=== PATIENT | female | born 1935 | race Caucasian/White ===

== ENCOUNTER 2021-01-24 14:22 | Outpatient (CLI) | payer MEDICARE, SELFPAY ==
--- NOTE | 2021-01-24 14:33 | XR_ITS ---
WS: [id number] SCREENING DEXA SCAN [facility] CLINICAL INFORMATION: [facility], VITAMIN D DEFIENCY COMPARISON: FINDINGS: The L1-L4 bone mineral density measures 1.115 g/cm2. This corresponds to a T score score of -0.5 and Z score of 1.2. Left femoral neck bone mineral density measures 0.766 g/cm2. This corresponds to a T score of -1.9 an d Z score of 0.2. Right femoral neck bone mineral density measures 0.782 g/cm2. This corresponds to a T score -1.8of an d Z score of 0.3. Mean femoral neck bone mineral density measures 0.774 g/cm2. This corresponds to a T score of -1.9 an d Z score of 0.3. XR/XR DEXA axial skeleton* [id number] IMPRESSION: Normal bone mineralization lumbar spine. Osteopenia femoral necks. Patient's FRAX calculated 10 year probability for major osteoporotic fracture i s 18.0 % and osteoporotic hip fracture is 6.3%.
== END 2021-01-24 14:23 | disposition home or self-care (01) ==
PROVIDERS: Visit Provider Electrodiagnostic Medicine
DX: Z00.00 Encounter for general adult medical examination without abnormal findings (principal); E55.9 Vitamin D deficiency, unspecified; M85.88 Other specified disorders of bone density and structure, other site
CPT/HCPCS: 77080

== ENCOUNTER 2021-02-20 10:46 | Outpatient (CLI) | payer MEDICARE, SELFPAY ==
--- NOTE | 2021-02-20 10:58 | US_ITS ---
WS: [id number] ULTRASOUND THYROID TECHNIQUE: Ultrasound of the thyroid. CLINICAL INFORMATION: GOITER COMPARISON: None. FINDINGS: Thyroid: Prior right thyroidectomy. No evidence of recurrence in the right thyroid bed. Heterogeneous enlargement of the left thyroid gland with diffuse micronodular echotexture. A few smal l cystic-appearing nodules measuring 3 to 4 mm. Substernal thyroid nodule or goiter measuring 5.4 x 3 .9 x 2.8 cm Right thyroid lobe: Prior right thyroidectomy Left thyroid lobe: 4.8 cm x 3.0 cm x 3.1 cm. Isthmus: 0.8 mm. Cervical lymphadenopathy: None. US/US thyroid [id number] IMPRESSION: 1. History of right thyroidectomy. No recurrence in the right thyroid bed. 2. Diffuse enlarged heterogeneous left thyroid gland with enlarged isthmus randa picious for thyroid goiter. Recommend correlation with thyroid function studies . 3. Left substernal thyroid nodule or goiter measuring 3.9 x 2.8 x 5.4 cm. This could be further evaluated with neck CT for better anatomic detail.
== END 2021-02-20 10:47 | disposition home or self-care (01) ==
PROVIDERS: PCP Electrodiagnostic Medicine; Visit Provider Electrodiagnostic Medicine
DX: E04.9 Nontoxic goiter, unspecified (principal); E89.0 Postprocedural hypothyroidism; E04.1 Nontoxic single thyroid nodule
CPT/HCPCS: 76536

== ENCOUNTER 2021-06-30 11:32 | Outpatient (CLI) | payer MEDICARE, SELFPAY ==
--- NOTE | 2021-06-30 11:56 | CT_ITS ---
WS: [id number] CT NECK TECHNIQUE: Contrast-enhanced CT of the neck with coronal and sagittal reformatted images. CLINICAL INFORMATION: NONTOXIC MULTINODULAR GOITER COMPARISON: Ultrasound February 20, 2021 DLP: 297.[address] scans at [facility] use at least one of these dose optimization techniques: automated e xposure control; mA and/or kV adjustment per patient size (includes targeted exams where dose is matc hed to clinical indication); or iterative reconstruction. FINDINGS: Heterogeneous lobulated multinodular LEFT thyroid lobe with thyroid goiter extending substernal into the LEFT anterior mediastinum. Substernal thyroid nodule measures 3.1 x 3.1 x 4.5 CM. Mass effect on the trachea and esophagus at the thoracic inlet with LEFT to RIGHT deviation. No airway narrowing. Ma ss effect on the adjacent esophagus. Retention cyst RIGHT maxillary sinus measuring 2.1 CM. Normal posterior nasopharynx. Normal paraphary ngeal fat. 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 Partially visualized intracranial conten ts appear normal for age. Tongue base appears normal. Artifact degrades images at the tongue base. No evidence of supraglottic or glottic mass. Normal epiglottis. Normal vallecula and piriform sinuses. Subglottic airway is patent. Parotid glands are normal. Normal submandibular glands. No cervical lymphadenopathy. Moderate spondyl itic changes cervical spine. Disc osteophyte complexes at C5-C6 and C6-C7 with mild central canal ofelia nosis. 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 CT/CT neck w con* [id number] IMPRESSION: 1. Heterogeneous enhancing enlarged LEFT thyroid lobe with substernal thyroid goiter. Substernal goiter measures approximately 3.1 x 3.1 x 4.5 cm 2. LEFT substernal goiter results in mass effect on the trachea at the thoraci c inlet and esophagus. LEFT to RIGHT midline shift of the trachea. No significa nt subglottic airway narrowing. 3. Prior RIGHT thyroid lobe resection. 4. Normal salivary glands. 5. No evidence of supraglottic or glottic mass. 6. No cervical lymphadenopathy. 7. Moderate spondylitic changes cervical spine.
[2021-06-30 13:10] LABS: Blood Urea Nitrogen 18 mg/dL (8-23)
[2021-06-30] MEDS: iohexol 350 mg/mL 100 mL Btl IV (13:13)
== END 2021-06-30 11:33 | disposition home or self-care (01) ==
PROVIDERS: PCP Electrodiagnostic Medicine; Visit Provider Specialist
DX: E04.2 Nontoxic multinodular goiter (principal)
CPT/HCPCS: 70491; 82565; 84520

== ENCOUNTER 2022-01-24 10:02 | Outpatient (CLI) | payer MEDICARE, SELFPAY ==
--- NOTE | 2022-01-24 10:21 | CT_ITS ---
WS: [id number] CT NECK TECHNIQUE: Contrast-enhanced CT of the neck with coronal and sagittal reformatted images. 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 FINDINGS: Prior RIGHT thyroidectomy. No evidence of recurrence in the RIGHT thyroid bed. Diffuse hete rogeneous enlargement of the LEFT thyroid with enlarged Isthmus. Stable LEFT substernal thyroid nodul e appears stable measuring up to 4.5 cm. Associated mass effect on the trachea at the thoracic inlet . LEFT to RIGHT midline shift on the trachea. Subglottic airway remains patent. 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 Normal parotid glands. Normal submandibular glands. No evidence of supraglottic or glottic mass. Subg lottic airway is normal. No cervical lymphadenopathy. Normal posterior nasopharynx and parapharyngeal fat. Dental artifact degrades some images of the tongue base. Mastoid air cells well aerated. Retent ion cyst RIGHT maxillary sinus measuring 2.1 cm. Pleural plaques in the lung apices with fibrosis. Ao rtic calcification. Moderate spondylitic changes cervical spine. CT/CT neck w con* [id number] IMPRESSION: 1. Stable heterogeneous thyroid with prior RIGHT thyroidectomy. 2. LEFT substernal goiter/nodule with heterogeneous enhancement is unchanged i n appearance compared to the prior neck CT measuring approximately 3.1 x 3.1 x 4.5 cm 3. Mild to moderate mass effect on the trachea at the thoracic inlet is unchan ged. 4. 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 5. No other significant interval changes.
[2022-01-24] MEDS: iohexol 350 mg/mL 500 mL Btl (per mL) IV (10:38)
[2022-01-24 11:28] LABS: Blood Urea Nitrogen 20 mg/dL (8-23)
== END 2022-01-24 10:03 | disposition home or self-care (01) ==
LOC: RAD 10:04
PROVIDERS: PCP Electrodiagnostic Medicine; Visit Provider Specialist
DX: E04.1 Nontoxic single thyroid nodule (principal); J38.2 Nodules of vocal cords; E89.0 Postprocedural hypothyroidism
CPT/HCPCS: 70491; 82565; 84520; Q9967

== ENCOUNTER 2022-09-07 16:40 | Observation (INO) | payer MEDICARE, SELFPAY ==
[2022-09-07] VITALS (26 sets, daily range): BP systolic 99–158; BP diastolic 48–108; PULSE 69–150; RESP 15–21; TEMP 36.6–37; O2SAT 92–98; BMI 23.9
--- NOTE | 2022-09-07 17:04 | ECG_ITS ---
[facility] Test Date: 2022-09-07 Pat Name: Saw Juarez Department: Room: Gender: Female Shoe Cobbler: : 1935 Requested By: Miguel Mendes Order Number: [id number] Marti MD: Mckinley Stuart M.D. Measurements Intervals [place] Rate: 154 P: 0 OK: 0 QRS: 56 QRSD: 84 T: 32 QT: 257 QTc: 412 Interpretive Statements ATRIAL FIBRILLATION WITH RAPID VENTRICULAR RESPONSE MODERATE ST DEPRESSION [0.05+ mV ST DEPRESSION] No previous ECG available for comparison Electronically Signed On 09-08-2022 1:10:06 CDT by Mckinley Stuart M.D. [email or web address]
--- NOTE | 2022-09-07 17:11 | ED_ITS ---
HPI - Weakness General: Chief complaint: Weakness Stated complaint: High pulse, Weakness, Dizzy Time Seen by Provider: 09/07/22 17:01 History of Present Illness: Patient being weak and dizzy since she started some new medicine. This was an antibiotic for UTI about 1 week ago. Patient has since stopped it patient saw her doctor at [facility] this morning they recommended she come here to be further checked out and evaluated. Patient said her heart rate was in 140s when she checked. Patient does not have a history of tachycardia or atrial fibrillation. Patient is on no blood thinners. Patient did not finish her antibiotics for UTI. Patient is never felt like this before. Review of Systems General: Reports: 10 or more systems reviewed and unremarkable except in HPI and below Physical Exam Const: COMMON NORMALS: no acute distress, average body habitus, patient oriented x3, no limitations, healthy appearing, alert and well nourished HENMT: COMMON NORMALS: normocephalic, atraumatic, hearing grossly normal bilaterally, external ears normal, Normal external nose present and moist oral mucous membranes HEAD & SCALP: normocephalic and atraumatic NOSE: Normal external nose present EXTERNAL EAR: Yes external ears normal Eye: COMMON NORMALS: Equal, round and reactive pupils present, EOMs intact bilaterally, conjunctivae normal and no scleral icterus CONJUNCTIVA: Yes conjunctivae normal PUPIL: Yes Equal, round and reactive pupils present Neck/C-Spine: COMMON NORMALS: full ROM, no lymphadenopathy, supple, no meningeal signs and no JVD Chest: COMMONS NORMALS: normal inspection of the chest and normal palpation of entire chest wall Resp: COMMON NORMALS: normal respiratory effort, No retractions, No use of accessory muscles and clear to auscultation bilaterally AUSCULTATION: clear to auscultation bilaterally Cardio: COMMON NORMALS: no JVD; negative for regular rate (Tachycardic) and negative for regular rhythm (Irregularly irregular) RATE: abnormal rate (Tachycardic) RHYTHM: abnormal rhythm (Irregularly irregular) GI: COMMON NORMALS: Normal to inspection, nondistended, normoactive bowel sounds present, Soft to palpation, non-tender, No hepatosplenomegaly present and no masses PALPATION: Yes Soft to palpation and Yes No hepatosplenomegaly present : COMMON NORMALS: Yes no CVA tenderness BLADDER/KIDNEY EXAM: Yes no CVA tenderness Back/Pelvis: COMMON NORMALS: no CVA tenderness Extremity: COMMON NORMALS: normal to inspection Neuro: COMMON NORMALS: patient oriented x3 SENSORIUM/ORIENTATION: Yes alert MENINGEAL SIGNS: Yes no meningeal signs Course Vital Signs: Vital signs: Vital Signs Pulse Rate 129 H 09/07/22 17:30 Respiratory Rate 17 09/07/22 16:53 Blood Pressure 116/91 09/07/22 17:30 Pulse Oximetry 97 09/07/22 17:30 Oxygen Delivery Me thod Room Air 09/07/22 17:30 MDM - Weakness Medical Decision Making Patient presents to the ER with complaints of heart racing and weakness starting this morning. EKG showed A-fib with RVR at a rate of about 140 beats a minute. Patient was given 10 mg of Cardizem and started on Cardizem drip. Lab work was obtained which was essentially unremarkable. Patient required the drip to be titrated although up to 12.5 mg/h which she then returned back to normal sinus rhythm at about [address] Hollingsworth did accept the patient to [facility] for observation. Differential Diagnosis Unlikely acute myocardial infarction, anemia, hypothyroidism, rhabdomyolysis, sepsis or dehydration Medical Records I reviewed the patient's medical records. Lab Data I reviewed the patient's lab results. 09/07/22 17:04 09/07/22 17:04 Laboratory Results WBC 10.0 10^3/uL (4.0-10.0) 09/07/22 17:04 RBC 4.90 10^6/uL (4.1-5.3) 09/07/22 17:04 Hgb 15.0 g/dL (11.5-15.3) 09/07/22 17:04 Hct 44.1 % (37.0-47.0) 09/07/22 17:04 MCV 90.0 fl (81-99) 09/07/22 17:04 MCH 30.6 pg (28.0-34.0) 09/07/22 17:04 MCHC 34.0 g/dL (30.0-36.0) 09/07/22 17:04 RDW 13.8 % (12.1-15.1) 09/07/22 17:04 Plt Count 340 10^3/cmm (130-400) 09/07/22 17:04 MPV 9.3 fL (7.4-10.4) 09/07/22 17:04 Neut % (Auto) 90.1 % 09/07/22 17:04 Lymph % (Auto) 8.4 % 09/07/22 17:04 [place] % (Auto) 0.9 % 09/07/22 17:04 Eos % (Auto) 0.0 % 09/07/22 17:04 Baso % (Auto) 0.2 % 09/07/22 17:04 Neut # (Auto) 9.01 10^3/uL (1.8-7.7) H 09/07/22 17:04 Lymph # (Auto) 0.8 10^3/uL (0.8-4.8) 09/07/22 17:04 [place] # (Auto) 0.1 10^3/uL (0.2-0.9) L 09/07/22 17:04 Eos # (Auto) 0.0 10^3/uL (0.0-0.8) 09/07/22 17:04 Baso # (Auto) 0.0 10^3/uL (0.0-0.1) 09/07/22 17:04 Nucleated RBC % (auto) 0 % 09/07/22 17:04 Nucleated RBCs # 0.0 /100WBC 09/07/22 17:04 Sodium 131 mmol/L (136-145) L 09/07/22 17:04 Potassium 4.2 mmol/L (3.5-5.1) 09/07/22 17:04 Chloride 94 mmol/L (98-107) L 09/07/22 17:04 Carbon Dioxide 23 mmol/L (22-29) 09/07/22 17:04 Anion Gap 18.2 (5-19) 09/07/22 17:04 BUN 14 mg/dL (8-23) 09/07/22 17:04 Creatinine 0.7 mg/dL (0.5-0.9) 09/07/22 17:04 GFR Calculation Not Reportable 09/07/22 17:04 Glucose 165 mg/dL (65-115) H 09/07/22 17:04 Calculated Osmolality 276 mOsm/kg (285-295) L 09/07/22 17:04 Calcium 9.6 mg/dL (8.5-10.5) 09/07/22 17:04 Magnesium 1.8 mg/dL (1.7-2.3) 09/07/22 17:04 Total Bilirubin 0.4 mg/dL (0.15-1.2) 09/07/22 17:04 AST 23 U/L (0-32) 09/07/22 17:04 ALT 17 U/L (0-33) 09/07/22 17:04 Alkaline Phosphatase 55 U/L (35-105) 09/07/22 17:04 Troponin T Gen 5 ng/L 11 ng/L (0-10) H 09/07/22 17:04 Total Protein 6.7 g/dL (6.6-8.7) 09/07/22 17:04 Albumin 4.5 g/dL (3.5-5.2) 09/07/22 17:04 Globulin 2.2 g/dL (1.3-4.6) 09/07/22 17:04 EKG Data EKG 1: I personally reviewed and interpreted this EKG as follows: EKG interpretation date: 09/07/22 EKG interpretation time: 17:04 Prior EKG tracings: not available for review Interpretation: EKG showed ventricular rate 154 beats minute, atrial fibrillation with rapid ventricular response. QRS duration 84, QTc 344, moderate ST depression, Discharge Plan Discharge Patient Disposition: Placed in Observation Clinical Impression: Atrial fibrillation with rapid ventricular response Condition: Stable Coding Level of Care Code ED Foreign Clerk for Lalo Tao
[2022-09-07] MEDS: sodium chloride 0.9% 1,000 ML 999 ML IV (17:13)
[2022-09-07] MEDS: dilTIAZem 5 mg/mL SDV 5 mL 10 MG IVP (17:14)
[2022-09-07 17:17] LABS: Basophils % 0.2 %; Hematocrit 44.1 % (37.0-47.0); Lymphocytes # 0.8 10^3/uL (0.8-4.8); Lymphocytes % 8.4 %; Mean Corpuscular Hemoglobin 30.6 pg (28.0-34.0); Mean Platelet Volume 9.3 fL (7.4-10.4); Monocytes # 0.1 10^3/uL (0.2-0.9); Monocytes % 0.9 %; Neutrophils # 9.01 10^3/uL (1.8-7.7); Neutrophils % 90.1 %; Nucleated Red Blood Cells % 0 %; Platelet Count 340 10^3/cmm (130-400); Red Cell Distribution Width 13.8 % (12.1-15.1)
[2022-09-07] MEDS: dilTIAZem 100 MG in sodium chloride 0.9% (add-van) 100 ML IV (17:24)
--- NOTE | 2022-09-07 17:27 | PC.NURSE ---
TITRATE CARDIZEM DRIP TO REFLECT A HEARTRATE OF 100BPM OR LESS, PER DR. SPENCER.
[2022-09-07 17:28] LABS: Troponin T (5th) Once 11 ng/L (0-10)
[2022-09-07 17:30] LABS: Alanine Aminotransferase 17 U/L (0-33); Albumin Level 4.5 g/dL (3.5-5.2); Alkaline Phosphatase 55 U/L (35-105); Aspartate Amino Transferase 23 U/L (0-32); Blood Urea Nitrogen 14 mg/dL (8-23); Calcium 9.6 mg/dL (8.5-10.5); Carbon Dioxide 23 mmol/L (22-29); Globulin 2.2 g/dL (1.3-4.6); Glucose 165 mg/dL (65-115); Magnesium 1.8 mg/dL (1.7-2.3); Total Bilirubin 0.4 mg/dL (0.15-1.2); Total Protein 6.7 g/dL (6.6-8.7)
[2022-09-07 17:31] LABS: Anion Gap 18.2 (5-19); Potassium 4.2 mmol/L (3.5-5.1)
--- NOTE | 2022-09-07 18:43 | PC.NURSE ---
PT MAINTAINING HEART RATE OF 88 WITH CARDIZEM GOING AT 12.5 MG/HR. PER ORDERS FROM DR. SPENCER, NO MORE TITRATION DUE TO HEART RATE BELOW 100.
--- NOTE | 2022-09-07 19:01 | PM.HP ---
Providers/Chief Complaint Admitting Physician: Shadi Hollingsworth Primary Care Provider: Marky Flores DO Chief Complaint: High pulse, Weakness, Dizzy History of Present Illness Saw Juarez is a 87 year old female with past medical history of hypertension presented to the hospital today for complaint of overall not feeling well. She says that for the last few weeks she has been feeling dizzy and lightheaded. She has not passed out at all. She says she does have trouble with some motion sickness in the past and takes [id number] medicine for it. She says she got her ears checked and they were fine. She also had her ears irrigated by her primary care doctor. She said her primary care doctor did a full work-up and apparently no particular diagnosis was made. She said they could not figure out what is going on so they gave her an antibiotic for presumed UTI. She says she took the antibiotic and had severe allergy to it and had itching and hives. She went back to her doctor and got a different antibiotic this time which was probably amoxicillin she thinks and that gave her an allergic reaction as well. She says she does not normally take medications. She says she went back to the doctor thinking that maybe she had a sinus infection and that is causing dizziness at this point she was given prednisone and she only took 2 tablets for 2 days. Then at 1 point it was noted that her heart rate was 142 at home. She called her primary care doctor's office who directed her to go to the ER. She denies having a fever, nausea, vomiting, diarrhea, abdominal pain, chest pain, shortness of breath. Her only symptom is lightheadedness and dizziness which is also resolved at this point. Patient denies any dysuria or any other symptoms at this time. ED course: On arrival patient was found to be in A-fib with RVR. She was given 10 of Cardizem and started on a drip. She has since then converted to sinus rhythm and will be admitted for observation. At home patient takes hydrochlorothiazide and metoprolol tartrate twice daily. Medications/Allergies Home Medications Medication Instructions Recorded Confirmed Last Taken Type hydrochlorothiazide 25 mg tablet 25 mg PO DAILY 09/07/22 09/07/22 Unknown History metoprolol tartrate 50 mg tablet 50 mg PO 2XD 09/07/22 09/07/22 09/06/22 History nitrofurantoin 100 mg PO 2XD 09/07/22 09/07/22 Unknown History monohydrate/macrocrystals 100 mg capsule prednisone 20 mg tablet 20 mg PO 1XD 09/07/22 09/07/22 Unknown History Allergies Allergy/AdvReac Type Severity Reaction Status Date / Time amoxicillin Allergy ALGY-Rash Verified 09/07/22 20:02 doxycycline Allergy ALGY-Rash Verified 09/07/22 20:05 Vitals/I&O/Wt Last Vital Signs Pulse 84 09/07/22 18:45 Resp 17 09/07/22 16:53 BP 117/60 09/07/22 18:45 Pulse Ox 97 09/07/22 18:45 O2 Del Method Room Air 09/07/22 18:45 09/07/22 09/07/22 09/07/22 06:59 14:59 22:59 Intake Total 1007.041 / 1007.041 Balance 1007.041 / 1007.041 Weight last 48 hrs Weight 65.317 kg Physical Exam Narrative: General: Alert oriented x3, patient seen sitting up in bed appearing comfortable at this time. HEENT: Normocephalic, atraumatic, EOMI, breathing normally on room air. Cardio: Regular rate rhythm, normal S1-S2, Respiratory: Good bilateral air entry, no wheezes no rhonchi appreciated GI: Abdomen soft, nontender, nondistended, bowel sounds + Behavior: Appropriate and cooperative Extremities: No edema Data 09/07/22 17:04 09/07/22 17:04 A&P Assessment and plan (1) Atrial fibrillation with rapid ventricular response: (2) Hypertension: (3) Lightheadedness: Plan #New onset atrial fibrillation #Dizziness lightheadedness last few weeks #Hypertension #UTI?? #Mild hyponatremia ? Continue Lopressor 50 twice daily. I would hold hydrochlorothiazide at this time. ? Keep magnesium above 2, potassium above 4 ? Replete electrolytes as needed. Check BMP magnesium in a.m. ? Unsure how long patient was in A-fib as she has been having dizziness lightheadedness symptoms for last few weeks. At this point she is converted to sinus rhythm. ? [id number] is greater than 2. Patient would benefit from anticoagulation if this was paroxysmal atrial fibrillation. Patient will probably need a Holter monitor at discharge. ? We will need to discuss with her regarding anticoagulation. ? Cardiac diet ? Check echocardiogram ? SCDs, heparin SQ twice daily for DVT prophylaxis ? She denies chest pain shortness of breath or any other symptoms. ? We will check a urine culture to rule out UTI. I will hold off antibiotics for now. She apparently has had an allergic reaction to nitrofurantoin and amoxicillin from what it seems like. - check tsh, lipid, hba1c -Check orthostatic vitals ? Check urine osmolality, serum osmolality, urine sodium. Low sodium could be due to dehydration. I will place on normal saline 75 cc/h. Full code Attestations Medical Necessity Statement*: Observation for atrial fibrillation now converted to sinus rhythm. Expect stay less than 48 hours. Coding Level of Care Code G0425 (30 min) TH Encounter Time (min): 40 Patient seen via Telehealth in the acute care setting (hospital or ED location) by agreement and consent of patient or patient technical service representative. Telehealth technology used during the visit includes video and audio. This patient encounter is appropriate and reasonable under the circumstances given the patient?s particular presentation at this time. The patient has been advised of the potential risks and limitations of this mode of treatment (including but not limited to the absence of in-person examination at this time) and has agreed to be treated by an off-site physician for this visit. If deemed clinically necessary from this telehealth visit, or if condition or consent for telehealth visit changes, an in-person visit will be arranged. For this encounter, total time for the origination of telehealth care on this date is as shown. Diagnoses Atrial fibrillation with rapid ventricular response I48.91 Hypertension I10 Lightheadedness R42
[2022-09-07 19:42] LABS: Thyroid Stimulating Hormone 0.34 uIU/mL (0.27-4.20)
[2022-09-07 19:46] LABS: Sodium 131 mmol/L (136-145)
[2022-09-07 19:47] LABS: Chloride 94 mmol/L (98-107); Osmolality Calculated 276 mOsm/kg (285-295)
[2022-09-07] MEDS: sodium chloride 0.9% 1,000 ML 75 ML IV (20:26)
[2022-09-07 20:35] LABS: Chol HDL Ratio 2.97 mg/dL (0.0-4.40); Cholesterol 175 mg/dL (0-200); HDL Cholesterol 59 mg/dL (60-100); LDL Cholesterol Calculated 81 mg/dL (50-129); LDL HDL Ratio 1.37 RATIO (0.00-3.22); Triglycerides 177 mg/dL (0-150)
[2022-09-07 20:42] LABS: Estmated Average Glucose 114; Hemoglobin A1C 5.6 % (4.0-6.0)
[2022-09-08] VITALS (24 sets, daily range): BP systolic 108–135; BP diastolic 44–97; PULSE 65–88; RESP 14–23; TEMP 36.7–36.9; O2SAT 93–96
[2022-09-08 03:16] LABS: Bilirubin Urine Neg (Negative); Blood Urine Neg (Negative); Glucose Urine UA Norm (Normal); Ketones Urine 1+ (Negative); Nitrate Urine Negative (Negative); Protein Urine Neg (Negative); Urine Appearance SL Hazy (CLEAR); Urine Color Yellow (Yellow); Urobilinogen Urine Norm (Negative); pH Urine 5 (5-7)
[2022-09-08 03:17] LABS: Add Urine Microscopic? YES; Leukocyte Esterase Urine 1+ (Negative)
[2022-09-08 03:20] LABS: Add Urine Culture? Yes; Bacteria Urine 3+ /hpf; RBC Urine 0-4 /hpf (0-2); Squamous Epithelial Cell Urine 0-4 /hpf (0-5)
[2022-09-08 03:38] LABS: Basophils % 0.1 %; Eosinophils % 0.1 %; Hematocrit 39.8 % (37.0-47.0); Hemoglobin 13.2 g/dL (11.5-15.3); Lymphocytes # 1.8 10^3/uL (0.8-4.8); Lymphocytes % 19.6 %; Mean Corpuscular HGB Conc 33.2 g/dL (30.0-36.0); Mean Corpuscular Hemoglobin 30.4 pg (28.0-34.0); Mean Corpuscular Volume 91.7 fl (81-99); Mean Platelet Volume 9.3 fL (7.4-10.4); Monocytes # 0.7 10^3/uL (0.2-0.9); Monocytes % 7.2 %; Neutrophils # 6.71 10^3/uL (1.8-7.7); Neutrophils % 72.7 %; Nucleated Red Blood Cells % 0 %; Platelet Count 293 10^3/cmm (130-400); Red Blood Count 4.34 10^6/uL (4.1-5.3); Red Cell Distribution Width 14.1 % (12.1-15.1); White Blood Count 9.2 10^3/uL (4.0-10.0)
[2022-09-08 03:51] LABS: Alanine Aminotransferase 14 U/L (0-33); Albumin Level 3.6 g/dL (3.5-5.2); Alkaline Phosphatase 43 U/L (35-105); Anion Gap 15.2 (5-19); Aspartate Amino Transferase 16 U/L (0-32); Blood Urea Nitrogen 11 mg/dL (8-23); Calcium 8.6 mg/dL (8.5-10.5); Carbon Dioxide 24 mmol/L (22-29); Chloride 103 mmol/L (98-107); Globulin 2.1 g/dL (1.3-4.6); Glucose 120 mg/dL (65-115); Magnesium 1.9 mg/dL (1.7-2.3); Osmolality Calculated 287 mOsm/kg (285-295); Potassium 4.2 mmol/L (3.5-5.1); Sodium 138 mmol/L (136-145); Total Bilirubin 0.5 mg/dL (0.15-1.2); Total Protein 5.7 g/dL (6.6-8.7)
[2022-09-08] MEDS: sodium chloride 0.9% 1,000 ML 75 ML IV (10:01)
[2022-09-08] MEDS: metoprolol tartrate 50 mg Tablet PO ×2 (10:01→20:46)
--- NOTE | 2022-09-08 15:04 | PM.DCS ---
Discharge Providers Date of Admission: 09/07/22 18:44 Date of Discharge: September 08, 2022 Attending Provider at Admission: Shadi Hollingsworth Attending Provider at Discharge: Shadi Hollingsworth Primary Care Provider: Marky Flores DO Diagnoses at Discharge Discharge Diagnosis (1) Atrial fibrillation with rapid ventricular response: Status: Acute (2) Hypertension: Status: Acute (3) Lightheadedness: Status: Acute Other Information Additional DC diagnoses/information: Spotting UTI Reason for Visit Reason for Visit: High pulse, Weakness, Dizzy Hospital Course Hospital Course Very pleasant 87-year-old lady with history of hypertension was placed in observation hospital after presenting due to dizziness, lightheadedness, with finding of atrial fibrillation with RVR presentation. She feels it may have been triggered by prednisone or possibly by reaction to antibiotic, she thinks amoxicillin. She does not have history of atrial fibrillation. Heart rates in the 150s initially. She received Cardizem, started on Cardizem drip. Converted to sinus rhythm last night. Overnight monitoring on telemetry, remains in sinus. Resumed on her metoprolol of 50 mg twice daily. TSH checked and normal. Electrolytes WNL. Cardiac studies without suggestion of acute GA or cardiac ischemia. Remains asymptomatic at this time, no chest pain pressure, trouble breathing. Doing well. Echocardiogram was ordered, but is still not performed and as she is otherwise doing well and comfortable returning home, echocardiogram is requested to be done as outpatient. Prednisone is discontinued, nitrofurantoin is stopped. She is still noted to have some residual urinary tract infection with pyuria. She also noticed some red spots on tissue paper when she wipes but denies any blood in the toilet bowl. She declined examination. Antibiotic switched to cefdinir, first dose to be given here prior to discharge. Please follow-up urine culture results. Please follow-up regarding blood spots on tissue paper, revisit examination, consider other sources. Only 074 RBC noted in urine. In case of hematuria, consider referral for assessment to urology if not resolving with treatment of UTI, other causes could be gynecologic. He denies blood in stool. Discussing risk of stroke with atrial fibrillation, [id number] score is 3, would benefit from anticoagulation, rate, currently declines as she is worried about taking anticoagulation and worried about bleeding. Discussed for now starting aspirin 81 mg with which she is okay. Please revisit with her consideration of anticoagulation especially if bleeding concerns are addressed. In case not a candidate or still concerns, consider referral for left atrial appendage closure. Physical Exam Narrative: Accompanied by her . Const: COMMON NORMALS: patient oriented x3 and alert GENERAL APPEARANCE: cooperative ORIENTATION/CONSCIOUSNESS: Yes awake HENMT: COMMON NORMALS: oropharynx normal Neck/C-Spine: COMMON NORMALS: no JVD Resp: COMMON NORMALS: normal respiratory effort and clear to auscultation bilaterally AUSCULTATION: clear to auscultation bilaterally Cardio: COMMON NORMALS: no JVD, regular rhythm, S1 normal heart sound present, S2 normal heart sound present and No murmurs present (Cardio) RHYTHM: regular rhythm HEART SOUNDS: S1 normal heart sound present and S2 normal heart sound present GI: COMMON NORMALS: Normal to inspection, nondistended, normoactive bowel sounds present, Soft to palpation and non-tender PALPATION: Yes Soft to palpation Extremity: COMMON NORMALS: no joint enlargement and no pedal edema Neuro: COMMON NORMALS: patient oriented x3 and moves all extremities SENSORIUM/ORIENTATION: Yes alert Skin: COMMON NORMALS: no rashes or lesions noted GENERAL SKIN EXAM: no rashes or lesions noted Discharge Data Studies Completed and Pending Pending at discharge Category Date Time Status Blood Culture Routine Lab 09/07/22 19:58 Results Urine Culture Stat Lab 09/07/22 03:00 Received Urine Culture Stat Lab 09/07/22 03:00 Received CV. echo complete* [id number] Routine Ultrasound 09/08/22 18:59 Ordered Laboratory Results WBC 9.2 10^3/uL (4.0-10.0) 09/08/22 03:12 RBC 4.34 10^6/uL (4.1-5.3) 09/08/22 03:12 Hgb 13.2 g/dL (11.5-15.3) 09/08/22 03:12 Hct 39.8 % (37.0-47.0) 09/08/22 03:12 MCV 91.7 fl (81-99) 09/08/22 03:12 MCH 30.4 pg (28.0-34.0) 09/08/22 03:12 MCHC 33.2 g/dL (30.0-36.0) 09/08/22 03:12 RDW 14.1 % (12.1-15.1) 09/08/22 03:12 Plt Count 293 10^3/cmm (130-400) 09/08/22 03:12 MPV 9.3 fL (7.4-10.4) 09/08/22 03:12 Neut % (Auto) 72.7 % 09/08/22 03:12 Lymph % (Auto) 19.6 % 09/08/22 03:12 [place] % (Auto) 7.2 % 09/08/22 03:12 Eos % (Auto) 0.1 % 09/08/22 03:12 Baso % (Auto) 0.1 % 09/08/22 03:12 Neut # (Auto) 6.71 10^3/uL (1.8-7.7) 09/08/22 03:12 Lymph # (Auto) 1.8 10^3/uL (0.8-4.8) 09/08/22 03:12 [place] # (Auto) 0.7 10^3/uL (0.2-0.9) 09/08/22 03:12 Eos # (Auto) 0.0 10^3/uL (0.0-0.8) 09/08/22 03:12 Baso # (Auto) 0.0 10^3/uL (0.0-0.1) 09/08/22 03:12 Nucleated RBC % (auto) 0 % 09/08/22 03:12 Nucleated RBCs # 0.0 /100WBC 09/08/22 03:12 Sodium 138 mmol/L (136-145) 09/08/22 03:12 Potassium 4.2 mmol/L (3.5-5.1) 09/08/22 03:12 Chloride 103 mmol/L (98-107) 09/08/22 03:12 Carbon Dioxide 24 mmol/L (22-29) 09/08/22 03:12 Anion Gap 15.2 (5-19) 09/08/22 03:12 BUN 11 mg/dL (8-23) 09/08/22 03:12 Creatinine 0.5 mg/dL (0.5-0.9) 09/08/22 03:12 GFR Calculation Not Reportable 09/08/22 03:12 Glucose 120 mg/dL (65-115) H 09/08/22 03:12 Estimat Average Glucose 114 09/07/22 17:04 Hemoglobin A1c 5.6 % (4.0-6.0) 09/07/22 17:04 Calculated Osmolality 287 mOsm/kg (285-295) 09/08/22 03:12 Calcium 8.6 mg/dL (8.5-10.5) 09/08/22 03:12 Magnesium 1.9 mg/dL (1.7-2.3) 09/08/22 03:12 Total Bilirubin 0.5 mg/dL (0.15-1.2) 09/08/22 03:12 AST 16 U/L (0-32) 09/08/22 03:12 ALT 14 U/L (0-33) 09/08/22 03:12 Alkaline Phosphatase 43 U/L (35-105) 09/08/22 03:12 Troponin T Gen 5 ng/L 11 ng/L (0-10) H 09/07/22 17:04 Total Protein 5.7 g/dL (6.6-8.7) L 09/08/22 03:12 Albumin 3.6 g/dL (3.5-5.2) 09/08/22 03:12 Globulin 2.1 g/dL (1.3-4.6) 09/08/22 03:12 Triglycerides 177 mg/dL (0-150) H 09/07/22 17:04 Cholesterol 175 mg/dL (0-200) 09/07/22 17:04 LDL Cholesterol, Calc 81 mg/dL (50-129) 09/07/22 17:04 HDL Cholesterol 59 mg/dL (60-100) L 09/07/22 17:04 LDL/HDL Ratio 1.37 RATIO (0.00-3.22) 09/07/22 17:04 Cholesterol/HDL Ratio 2.97 mg/dL (0.0-4.40) 09/07/22 17:04 TSH 0.34 uIU/mL (0.27-4.20) 09/07/22 17:04 Urine Color Yellow (Yellow) 09/07/22 03:00 Urine Appearance Sl hazy (CLEAR) A 09/07/22 03:00 Urine pH 5 (5-7) 09/07/22 03:00 Ur Specific [place] 1.010 (1.005-1.030) 09/07/22 03:00 Urine Protein Neg (Negative) 09/07/22 03:00 Urine Glucose (UA) Norm (Normal) 09/07/22 03:00 Urine Ketones 1+ (Negative) H 09/07/22 03:00 Urine Blood Neg (Negative) 09/07/22 03:00 Urine Nitrate Negative (Negative) 09/07/22 03:00 Urine Bilirubin Neg (Negative) 09/07/22 03:00 Urine Urobilinogen Norm mg/dL (Negative) 09/07/22 03:00 Ur Leukocyte Esterase 1+ (Negative) H 09/07/22 03:00 Urine RBC 0-4 /hpf (0-2) H 09/07/22 03:00 Urine WBC 10-15 /hpf (0-5) H 09/07/22 03:00 Ur Squamous Epith Cells 0-4 /hpf (0-5) H 09/07/22 03:00 Amorphous Sediment Not Reportable 09/07/22 03:00 Urine Bacteria 3+ /hpf (NONE) H 09/07/22 03:00 Vitals Last Vital Signs Temp 98.1 F 09/08/22 11:52 Pulse 66 09/08/22 11:52 Resp 14 09/08/22 11:52 BP 133/65 09/08/22 11:52 Pulse Ox 94 09/08/22 11:52 O2 Del Method Room Air 09/08/22 11:52 Discharge Plan Discharge Patient Disposition: Home Condition: Stable Prescriptions: New cefdinir 300 mg Capsule 300 mg PO BID Qty: 14 0RF aspirin 81 mg tablet,delayed release (DR/EC) 81 mg PO DAILY Qty: 90 0RF Continued metoprolol tartrate 50 mg tablet 50 mg PO 2XD Changed hydrochlorothiazide 25 mg tablet 12.5 mg PO DAILY Qty: 1 0RF Rx Instructions: Dose change only. Discontinued nitrofurantoin monohyd/m-cryst 100 mg capsule 100 mg PO 2XD Rx Instructions: for 7 days prednisone 20 mg tablet 20 mg PO 1XD Rx Instructions: for 6 days Discharge Orders: Discharge Order (Routine); Ordered 09/08/22 Ordered By: Shadi Hollingsworth Other Ambulatory Orders: CV. echo complete* [id number] (Routine) Timeframe: 3 Days Facility: [facility] - Location: Radiology Ordered By: Shadi Hollingsworth Referrals: Marky Flores, [Primary Care Provider] - 4-7 days Discharge Diet: Cardiac Patient Instructions: Aspirin (By mouth), A-fib (Atrial Fibrillation) (GEN) Activity Restrictions/Additional Instructions: Please follow-up with your primary doctor with regards to finding of new onset atrial fibrillation. You are referred for outpatient assessment with echocardiogram, please follow-up with your primary doctor. Please note that you are at increased risk of stroke due to atrial fibrillation, your age and hypertension, ideally you would benefit from treatment with anticoagulation, as per discussion currently you are started on aspirin. Please follow-up with your primary doctor regarding blood on tissue paper when wiping, and discuss consideration of anticoagulation once bleeding resolves or source of bleeding identified. If unable to tolerate blood thinners, discussed consideration of referral for left atrial appendage closure device. Please monitor your heart rate 3 times daily, alongside with your blood pressure, write down values to bring to your appointment. In case you experience any worse or new concerning symptoms, including lightheadedness, feeling faint, chest pain or pressure, shortness of breath, numbness or weakness of extremity, trouble speaking, facial droop, bleeding, or any other concerning findings, please seek medical attention. Discharge Attestations Time Spent in Discharge Care*: greater than 30 min Quality Metrics Clinical Quality Measures [ No reported AMI, CVA or VTE this stay] Coding Level of Care Code 19043 Total time (in minutes) for Discharge: 60 Diagnoses Atrial fibrillation with rapid ventricular response I48.91 Hypertension I10 Lightheadedness R42
[2022-09-08] MEDS: cefdinir 300 MG CAPSULE PO (15:29)
--- NOTE | 2022-09-08 17:30 | PC.NURSE ---
Pt concern that she her throat is going to close. Pt stated that she started to have a scratchy, hoarse voice. She told me she had a goiter before but she has a scratchy voice before but not in a long time. She thinks her lips are and mouth are dry. pt stated she would rather stay overnight to monitor for any allergic reaction. Dr Hollingsworth notified and is okay to be discharge in the morning.
[2022-09-09] VITALS: BP 131/79; PULSE 75; RESP 17; TEMP 37.1; O2SAT 96
[2022-09-09 04:00] VITALS: BP 133/70; PULSE 78; RESP 19; TEMP 37; O2SAT 98
[2022-09-09 05:57] VITALS: PULSE 75
--- NOTE | 2022-09-09 06:55 | PC.NURSE ---
Spoke with regarding patient going back into rapid afib at change of shift. HR 120-130s, BP 130/83. The patient states she woke up in a sweat but that is normal for her. said to give the patient her 9am metoprolol early for now.
[2022-09-09] MEDS: metoprolol tartrate 50 mg Tablet PO (07:02)
--- NOTE | 2022-09-09 08:30 | PC.NURSE ---
Pt converted back to sr w/ occ pacs Pt started to have an afib w/rvr around 6:30am per night nurse. She stated she broke out in sweats. started to have a short episode of lightheadedness and fluttering of her heart. Dr Mazariegos is aware the early episode this morning and pt's conversion back to sinus rhythm.
[2022-09-09 08:34] VITALS: BP 132/74; PULSE 69; RESP 21; TEMP 37.3; O2SAT 94
[2022-09-09] MEDS: cefdinir 300 MG CAPSULE PO (09:08)
[2022-09-09 10:37] VITALS: BP 139/65; PULSE 66; RESP 20; O2SAT 93
[2022-09-09 11:43] VITALS: BP 157/67
== END 2022-09-09 11:54 | disposition home or self-care (01) ==
LOC: ER 18:44 → CSU 19:21
PROVIDERS: Internal Medicine; Admitting Provider Internal Medicine; Emergency Provider Emergency Medicine; PCP Electrodiagnostic Medicine; Visit Provider Internal Medicine
DX: I48.91 Unspecified atrial fibrillation (principal); I10 Essential (primary) hypertension; E87.1 Hypo-osmolality and hyponatremia; R13.10 Dysphagia, unspecified; N39.0 Urinary tract infection, site not specified
CPT/HCPCS: 36415; 80053; 80061; 81001; 83036; 83735; 84443; 84484; 85025; 87040; 87077; 87086; 87186; 93005; 96365; 96375; 96376; 99285; G0378; J3475; J3490; J7030

== ENCOUNTER 2022-10-02 13:47 | Outpatient (CLI) | payer MEDICARE, SELFPAY ==
--- NOTE | 2022-10-02 15:45 | USCV_ITS ---
Saw Juarez Age: 87 Gender: F : 1935 Exam Date: 10/02/2022 14:34 Ordering Phys: Shadi Hollingsworth MD Technologist: Ricarda Gutierrez Exam Location: [facility] [place] Indication: A fib BP: 130 / 78 HR: 70 Rhythm: Sinus Technical Quality: Adequate MEASUREMENTS (Male / Female) Normal Values 2D ECHO LV Diastolic Diameter PLAX 3.7 cm 4.2 - 5.9 / 3.9 - 5.3 cm LV Systolic Diameter PLAX 2.0 cm IVS Diastolic Thickness 1.7 cm 0.6 - 1.0 / 0.6 - 0.9 cm IVS Systolic Thickness 1.9 cm LVPW Diastolic Thickness 0.7 cm 0.6 - 1.0 / 0.6 - 0.9 cm LVPW Systolic Thickness 1.5 cm LVOT Diameter 2.1 cm LV Ejection Fraction 2D Teich 79.1 % LV Ejection Fraction MOD 2C 73.0 % LV Ejection Fraction 2C AL 74.6 % LA Diameter 2.7 cm LA Width 4.0 cm LA Height 4.1 cm RA Width 2.5 cm RA Height 4.6 cm Aorta at Sinotubular Diameter 3.1 cm IVC Diameter 1.6 cm M-MODE Aortic Annulus Diameter 2.9 cm LA Ao Ratio MM 1.0 MV E Point Septal Separation 0.3 cm DOPPLER AV Peak Velocity 128.0 cm/s LVOT Peak Velocity 107.0 cm/s AV Area Cont Eq vti 3.2 cm squared AV Area Cont Eq pk 3.0 cm squared MV Peak Velocity 114.0 cm/s MV Area PHT 2.6 cm squared Mitral E to A Ratio 0.5 MV E' Velocity 29.0 cm/s Mitral E to MV E' Ratio 8.0 Mitral E to LV E' Lateral Ratio 7.0 Mitral E to LV E' Septal Ratio 9.3 TR Peak Velocity 213.8 cm/s TR Peak Gradient 18.3 mmHg Right Atrial Pressure 5.0 mmHg Pulmonary Artery Systolic Pressu 23.3 mmHg PV Peak Velocity 97.0 cm/s RV Acceleration Time 0.1 s RV Ejection Time 0.3 s RV AcT/ET 0.3 FINDINGS Left Ventricle Normal left ventricular size and systolic function, EF 73 %. Mild left ventricular hypertrophy.no regional wall motion abnormalities. Grade I/IV diastolic dysfunction (abnormal relaxation filling pattern), normal to mildly elevated filling pressures. Right Ventricle The right ventricle is normal in size and function. Right Atrium Mildly increased right atrial size. Left Atrium Mildly increased left atrial size. Mitral Valve Mild mitral annular calcification. Moderate mitral valve regurgitation. Aortic Valve Thickened aortic valve. Tricuspid Valve [id number] tricuspid valve regurgitation. Pulmonic Valve No gross abnormalities noted Pericardium Normal pericardium without effusion. Aorta Normal ascending aorta dimension. IVC Normal inferior vena cava. CONCLUSIONS Normal left ventricular size and systolic function, EF 73 %. Mild left ventricular hypertrophy.no regional wall motion abnormalities. Grade I/IV diastolic dysfunction (abnormal relaxation filling pattern), normal to mildly elevated filling pressures. Mild biatrial enlargement. Mild mitral annular calcification. Moderate mitral valve regurgitation. Thickened aortic valve. [id number] tricuspid valve regurgitation. Estimated pulmonary artery peak systolic pressure 23 mmHg There is no pericardial effusion. There are no intracardiac masses. No similar previous studies are available for comparison Dr William Estevez MD [facility] (Electronically Signed) Final Date: 02 October 2022 19:37 S
== END 2022-10-02 13:48 | disposition home or self-care (01) ==
PROVIDERS: PCP Electrodiagnostic Medicine; Visit Provider Internal Medicine
DX: I48.91 Unspecified atrial fibrillation (principal); I08.3 Combined rheumatic disorders of mitral, aortic and tricuspid valves
CPT/HCPCS: 93306

== ENCOUNTER 2023-04-11 12:22 | Outpatient (CLI) | payer MEDICARE, SELFPAY ==
--- NOTE | 2023-04-11 12:31 | CTR_ITS ---
PROCEDURE INFORMATION: Exam: CT Neck With Contrast Exam date and time: 04/11/2023 1:27 PM Age: 87 years old Clinical indication: Other: Nontoxic single thyroid nodule; Prior surgery; Surgery date: 6+ months TECHNIQUE: Imaging protocol: Computed tomography of the neck with contrast. Radiation optimization: All CT scans at this facility use at least one of these dose optimization techniques: automated exposure control; mA and/or kV adjustment per patient size (includes targeted exams where dose is matched to clinical indication); or iterative reconstruction. Contrast material: OMNI 350; Contrast volume: 95 ml; Contrast route: INTRAVENOUS (IV); COMPARISON: CT neck w con* [id number] 01/24/2022 10:45 AM RADIATION DOSE METRICS: Total DLP (mGy-cm): 129.47 FINDINGS: Paranasal sinuses: There is a mucous retention cyst in the right maxillary sinus. Pharynx: Unremarkable. No significant tonsillar enlargement. Larynx: Unremarkable. Epiglottis is normal. Prevertebral and retropharyngeal spaces: Unremarkable. Salivary glands: Normal. Glands are normal in size. Thyroid: Surgical changes of prior right thyroidectomy. Lymph nodes: Unremarkable. No lymphadenopathy. Trachea: Visualized trachea is unremarkable. Lungs: Unremarkable as visualized. Pleural spaces: There are bilateral apical pleural calcifications, unchanged. Esophagus: There is enlarged left thyroid lobe with heterogeneous CT density extending into the superior mediastinum, mildly compressing the upper esophagus, similar to prior. Bones/joints: There is a mild curvature of the upper thoracic spine convex to the left. There is mild loss of height of the T1, T2 and T3 vertebral bodies. 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 There is 2 mm anterolisthesis at C4-C5 level. Vasculature: Calcified atheromas of bowel bilateral cavernous ICAs but no significant stenosis. There are aortic arch calcifications. Soft tissues: Unremarkable. No significant soft tissue swelling. CT/CT neck w con* [id number] IMPRESSION: 1. Similar surgical changes of prior right thyroidectomy. 2. Stable enlarged left thyroid lobe with retrosternal extension mildly compressing the esophagus. 3. No lymphadenopathy.
[2023-04-11 13:25] LABS: Blood Urea Nitrogen 21 mg/dL (8-23)
[2023-04-11] MEDS: iohexol 350 mg/mL 500 mL Btl (per mL) IV (13:41)
== END 2023-04-11 12:23 | disposition home or self-care (01) ==
LOC: RAD 12:24
PROVIDERS: PCP Electrodiagnostic Medicine; Visit Provider Specialist
DX: E04.1 Nontoxic single thyroid nodule (principal)
CPT/HCPCS: 70491; 82565; 84520; Q9967

== ENCOUNTER → 2024-07-07 13:35 | Outpatient (BNVA) | payer MEDICARE, SELFPAY | PROVIDERS: PCP Electrodiagnostic Medicine; Referring Provider Electrodiagnostic Medicine; Visit Provider Nurse Practitioner Family | DX: L98.1 Factitial dermatitis (principal); L81.0 Postinflammatory hyperpigmentation; L90.5 Scar conditions and fibrosis of skin; D18.01 Hemangioma of skin and subcutaneous tissue; L72.0 Epidermal cyst; R20.8 Other disturbances of skin sensation; R23.8 Other skin changes; L30.9 Dermatitis, unspecified; R20.9 Unspecified disturbances of skin sensation | CPT/HCPCS: 10060; 11102; 99203 ==

== ENCOUNTER → 2024-08-21 08:58 | Outpatient (BNVA) | payer MEDICARE, SELFPAY | PROVIDERS: PCP Electrodiagnostic Medicine; Visit Provider Nurse Practitioner Family | DX: L82.1 Other seborrheic keratosis (principal); L98.1 Factitial dermatitis; L81.0 Postinflammatory hyperpigmentation | CPT/HCPCS: 99213 ==

== ENCOUNTER → 2025-02-10 14:13 | Outpatient (BNVA) | payer MEDICARE, SELFPAY | PROVIDERS: PCP Electrodiagnostic Medicine; Visit Provider Nurse Practitioner Family | DX: L28.1 Prurigo nodularis (principal); L98.1 Factitial dermatitis; L81.0 Postinflammatory hyperpigmentation; T49.0X5A Adverse effect of local antifungal, anti-infective and anti-inflammatory drugs, initial encounter; B07.8 Other viral warts; R20.8 Other disturbances of skin sensation; L53.8 Other specified erythematous conditions; D48.5 Neoplasm of uncertain behavior of skin; X58.XXXA Exposure to other specified factors, initial encounter | CPT/HCPCS: 11102; 17110; 99213 ==